=== PATIENT | female | born 1970 | race Caucasian/White ===

== ENCOUNTER 2020-07-29 08:09 | Outpatient (CLI) | payer OTHER, SELFPAY ==
--- NOTE | 2020-09-12 12:40 | WPDHOMESLEEP ---
Sleep Study - Home Unattended Date of Study: 07/29/20 Ordering Provider: Jasper Altamirano MD Interpreting Physician: Nicky Pike MD Home Sleep Study Type: Watch PAT Height: 1.73 m Weight: 130.635 kg Body Mass Index: 43.7 Neck Circumference (inches): 15.5 [place]: 12 Reason for Sleep Study hypersomnia Sleep History Deyanira Parnell is a 49 year old female with loud snoring. It is frequently loud enough that others complain. She never wakes at night with shortness of breath or GERD symptoms such as heartburn, belching or coughing. She occasionally has trouble sleeping with a cold. She never gasps for breath at night. She never has breathing problems at night observed by others. She occasionally sweats excessively at night. She never notices her heart pounding or beating irregularly at night. She occasionally falls asleep during the day, rarely involuntarily, never while driving or during physical effort. She does not have loss of muscle tone with strong emotion. She rarely has daytime difficulty due to excessive sleepiness. She works as a campus receptionist. She never feels paralyzed on waking or falling asleep. She never has vivid dreamlike scenes upon awakening or falling asleep. She is not afraid to go to sleep. She never has nightmares. She never remembers her dreams. She occasionally has racing thoughts. She rarely feels sad or depressed. She occasionally feels anxiety. She does not have muscular tension, does not notice part of her body jerking, does not kick at night does not have crawling and aching feelings in her legs. She occasionally has leg pain at night. She never has morning jaw pain. Severe tried her teeth during sleep. She frequently is bothered by pain during the day, occasionally is awakened by pain at night, occasionally wakes up feeling stiff in the morning. She rarely wakes up with sore or achy muscles or pain in the neck or spine. She occasionally has morning headaches. Normal bedtime is 11:00 p.m. falling asleep within 15-30 minutes. She usually does not wake during the night. On occasion, she wakes to use to the bathroom or because she is feeling hot. These episodes awake last 5 minutes. She wakes in the morning at 6:30 a.m.. On weekends she goes to bed 1 hour later at midnight and wakes up between 7 and 8 in the morning. She does not take naps. A short nap may be refreshing. Most of the times she feels refreshed on waking. Habits: never smoked tobacco. Occasionally drinks coffee 2 cups. No alcohol or recreational drugs. [facility] Past Medical History Medical History (Updated 09/13/20 @ 09:14 by Nicky Pike MD) Bilateral chronic knee pain Hypersomnia (~07/2020) Obesity, Class III, BMI 40-49.9 (morbid obesity) Family History Family History (Updated 03/26/19 @ 11:45 by DOCTOR UNKNOWN) Sibling Diabetes mellitus Acute myocardial infarction Mother Family history of malignant neoplasm Grandparent Family history of malignant neoplasm of uterus Family history of malignant neoplasm of breast Family history of malignant neoplasm of breast in first degree relative Family history of malignant neoplasm of ovary Social History Social History (Updated 06/09/20 @ 09:07 by Yessi Hernandez MA) Smoking status: Never smoker Alcohol intake: never Substance use: never Substance use type: does not use Medications Medications: No medications are listed. Sleep Procedure The sleep study was completed using [employer]imo TVPAT a technically adequate device with seven channels: peripheral arterial tone, actigraphy, body position, snore, respiratory movement, pulse oximetry, sleep staging, and heart rate. Prior to using the device, the patient received verbal and written instructions for its application and was provided with the help desk phone number for additional telephonic instruction with 24-hour availability of qualified personnel to answer questions. Sleep Architecture The recording time
[2020-09-13 09:24] VITALS: BMI 43.7
== END 2020-07-29 08:10 | disposition home or self-care (01) ==
LOC: ANHCSM 08:10
PROVIDERS: PCP Family Medicine; Visit Provider Family Medicine
DX: G47.10 Hypersomnia, unspecified (principal)
CPT/HCPCS: 95800

== ENCOUNTER → 2022-10-09 16:48 | Outpatient (CLI) | payer OTHER, SELFPAY ==
--- NOTE | ~2022-10-09 | MM_ITS ---
EXAMINATION: MM screening [facility] BI w volodymyr HISTORY: .. Screening TECHNIQUE: Craniocaudal and mediolateral oblique 3-D tomosynthesis images were obtained and synthetic 2-D images were generated. CAD analysis was submitted and interpreted. COMPARISON: 01/29/2019 diagnostic left mammogram and limited left breast ultrasound examination 04/16/2018 diagnostic left mammogram and complete left breast ultrasound 04/01/2018 bilateral screening mammogram BREAST PARENCHYMAL COMPOSITION: There are scattered areas of fibroglandular density. FINDINGS: Occasional bilateral benign calcifications. New 5 mm circumscribed opacity is noted in the lower outer left breast. Diagnostic left mammogram and left breast ultrasound examination are recommended. Otherwise there is no evidence of suspicious mass, calcification, or architectural distortion to sugg est malignancy in either breast. There has been no other suspicious interval change. IMPRESSION: 1. New 5 mm mass, lower outer left breast 2. Diagnostic left mammogram and left breast ultrasound examination are recommended BI-RADS Category 0: Incomplete: Needs additional imaging evaluation. Reviewed, dictated and finalized at location A. [employer] IMPRESSION: 1. New 5 mm mass, lower outer left breast 2. Diagnostic left mammogram and left breast ultrasound examination are recomme nded BI-RADS Category 0: Incomplete: Needs additional imaging evaluation.
== END ==
PROVIDERS: PCP Family Medicine; Visit Provider Family Medicine
DX: Z12.31 Encounter for screening mammogram for malignant neoplasm of breast (principal); R92.8 Other abnormal and inconclusive findings on diagnostic imaging of breast
CPT/HCPCS: 77063; 77067

== ENCOUNTER → 2022-11-09 08:40 | Outpatient (CLI) | payer OTHER, SELFPAY ==
--- NOTE | ~2022-11-09 | MMUS_ITS ---
EXAMINATION: MM diagnostic [facility] LT w volodymyr, US breast LT limited HISTORY: Follow-up left breast mass TECHNIQUE: Additional 3-D tomosynthesis images of the left breast were performed and synthetic 2-D im ages were generated. CAD analysis was submitted and interpreted. High resolution Limited left breast ultrasound was performed. COMPARISON: Comparison to multiple prior studies sequentially, with oldest reviewed study dated 04/05. BREAST PARENCHYMAL COMPOSITION: Breast composed of scattered areas of fibroglandular density FINDINGS: MAMMOGRAPHIC FINDINGS: There is a mass in the lower inner quadrant of the left breast measuring 8 x 4 mm on the spot CC view . No suspicious calcifications or architectural distortion. ULTRASOUND: Limited left breast ultrasound: At 5-6 o'clock, 3.5 mm from the nipple there is an irregular shaped h ypoechoic mass measuring 6 x 6 x 4 mm with antiparallel configuration, posterior shadowing and no int ernal vascularity. There is margins are somewhat irregular. IMPRESSION: 1. Abnormal 6 mm left breast mass at C5-6 o'clock, 3.5 cm from the nipple, corresponding to the mammo graphic finding. 2. Ultrasound-guided left breast biopsy recommended. BI-RADS category 4, suspicious findings. Reviewed, dictated and finalized at location A. IMPRESSION: 1. Abnormal 6 mm left breast mass at C5-6 o'clock, 3.5 cm from the nipple, connor esponding to the mammographic finding. 2. Ultrasound-guided left breast biopsy recommended. BI-RADS category 4, suspicious findings.
== END ==
PROVIDERS: PCP Family Medicine; Visit Provider Family Medicine
DX: R92.8 Other abnormal and inconclusive findings on diagnostic imaging of breast (principal)
CPT/HCPCS: 76642; 77061; 77065; G0279